=== PATIENT | female | born 1985 | race American Indian/Alaskan Native ===

== ENCOUNTER 2016-11-24 01:16 | Emergency (ER) | payer MEDICAID ==
[~2016-11-24] VITALS: Ht 157.5 cm; Wt 59.9 kg
[~2016-11-24 01:16] MED LIST: FER325T OR; FERR325T47; HYDR5CAP; RANI-226; RANI-226 OR
[2016-11-24 02:33] LABS: Basophils # (auto) 0.1 uL; Basophils % (auto) 0.7 % (0.0-2.0); Eosinophils # (auto) 0.2 uL; Eosinophils % (auto) 1.3 % (0.0-7.0); Hematocrit 38.3 % (36.0-46.0); Hemoglobin 12.7 g/dL (12.2-16.2); Lymphocytes # (auto) 4.7 uL; Lymphocytes % (auto) 35.2 % (10.0-50.0); Mean Corpuscular Hemoglobin 29.3 pg (28.0-32.0); Mean Corpuscular Hgb Conc. 33.1 g/dL (32.0-36.0); Mean Corpuscular Volume 88.7 fL (80.0-100.0); Mean Platelet Volume 7.8 fL (7.4-10.4); Monocytes # (auto) 0.7 uL; Monocytes % (auto) 5.6 % (0.0-12.0); Neutrophils # (auto) 7.7 uL; Neutrophils % (auto) 57.2 % (37.0-80.0); Platelet Count (auto) 506 10^3/uL (140-450); Red Cell Distribution Width 13.4 % (11.6-16.0); White Blood Cell 13.4 10^3/uL (4.4-10.8)
[2016-11-24 02:46] LABS: Urine Bilirubin Negative (Negative); Urine Color Yellow (Yellow); Urine Glucose Normal (Normal); Urine Ketone Negative (Negative); Urine Nitrite Negative (Negative); Urine RBC 3 /hpf (0 - 4); Urine Squamous Epithelial Cell FEW /hpf (<5); Urine Urobilinogen Normal (Negative)
[2016-11-24 02:52] LABS: Albumin 4.3 g/dL (3.4-5.0); BUN/Creatinine Ratio 14.5; Potassium 3.2 mmol/L (3.5-5.1)
[2016-11-24 03:02] LABS: Bilirubin, Total 0.8 mg/dL (0.2-1.0)
[2016-11-24 03:08] LABS: Urine Blood 1+ /uL (Negative)
[2016-11-24 04:00] VITALS: BP 134/76
[2016-11-24] MEDS ORDERED: ACETAMINOPHEN/CODEINE#3 (300/30mg) TAB PO ONE (04:00)
== END 2016-11-24 04:21 | disposition home or self-care (01) ==
LOC: ER 01:18
DX: N64.52 Nipple discharge (principal); F17.210 Nicotine dependence, cigarettes, uncomplicated; Z90.710 Acquired absence of both cervix and uterus; Z88.6 Allergy status to analgesic agent
CPT/HCPCS: 36415; 80053; 81001; 85025; 87077; 87186; 87205

== ENCOUNTER 2017-06-29 08:25 | Emergency (ER) | payer MEDICAID ==
[~2017-06-29] VITALS: Ht 157.5 cm; Wt 55.8 kg
[2017-06-29 09:19] LABS: Urine Bilirubin Negative (Negative); Urine Blood TRACE /uL (Negative); Urine Color Yellow (Yellow); Urine Glucose Normal (Normal); Urine Ketone Negative (Negative); Urine Mucus MODERATE (None Seen); Urine Nitrite Negative (Negative); Urine RBC 7 /hpf (0 - 4); Urine Squamous Epithelial Cell FEW /hpf (<5)
[2017-06-29 10:03] VITALS: BP 114/70
== END 2017-06-29 10:03 | disposition home or self-care (01) ==
LOC: ER 08:25
DX: N64.52 Nipple discharge (principal); N64.4 Mastodynia
CPT/HCPCS: 81001

== ENCOUNTER 2019-11-08 21:49 | Emergency (ER) | payer MEDICAID ==
[~2019-11-08] VITALS: Ht 157.5 cm; Wt 60.3 kg
[2019-11-08 22:30] VITALS: BP 129/83
[2019-11-09] MEDS ORDERED: ACETAMINOPHEN 500 MG TAB PO ONE (01:15)
== END 2019-11-09 02:57 | disposition home or self-care (01) ==
LOC: ER 21:53
DX: S20.219A Contusion of unspecified front wall of thorax, initial encounter (principal); F17.210 Nicotine dependence, cigarettes, uncomplicated; Z90.710 Acquired absence of both cervix and uterus; Z88.6 Allergy status to analgesic agent; Z79.899 Other long term (current) drug therapy; W20.8XXA Other cause of strike by thrown, projected or falling object, initial encounter; Y93.89 Activity, other specified; Y92.89 Other specified places as the place of occurrence of the external cause; Y99.8 Other external cause status
CPT/HCPCS: 71046

== ENCOUNTER → 2020-03-28 | Emergency (ER) | payer MEDICAID ==
[~2020-03-28] VITALS: Ht 157.5 cm; Wt 69.1 kg
[~2020-03-28] MED LIST changes: +ACETAMINOPHEN 500 MG TAB PO ONE; +traMADol HCL 50 MG TAB PO ONE
[2020-03-28 18:30] VITALS: BP 115/59
== END | disposition home or self-care (01) ==
LOC: ER 17:57
DX: S93.402A Sprain of unspecified ligament of left ankle, initial encounter (principal); S83.92XA Sprain of unspecified site of left knee, initial encounter; F17.210 Nicotine dependence, cigarettes, uncomplicated; Z90.710 Acquired absence of both cervix and uterus; Z88.0 Allergy status to penicillin; Z88.5 Allergy status to narcotic agent; Z79.899 Other long term (current) drug therapy; Z88.8 Allergy status to other drugs, medicaments and biological substances; Y04.2XXA Assault by strike against or bumped into by another person, initial encounter; Y93.89 Activity, other specified; Y92.89 Other specified places as the place of occurrence of the external cause; Y99.8 Other external cause status
CPT/HCPCS: 29505; 73110; 73562; 73610